=== PATIENT | female | born 1995 | race Caucasian/White ===

== ENCOUNTER 2021-07-06 08:09 | Inpatient (IN) ==
[2021-07-06] MEDS ORDERED: Metoclopramide 10 MG/2 ML VIAL IVP PRN (08:14)
[2021-07-06] MEDS ORDERED: *HR* Nalbuphine 10 MG/ML AMPUL IV PRN (08:14)
[2021-07-06] MEDS ORDERED: Naloxone 0.4 MG/ML INJ IVP PRN (08:14)
[2021-07-06] MEDS ORDERED: Famotidine 20 MG/2 ML VIAL IVP PRN (08:14)
[2021-07-06 09:03] LABS: Basophils % 0.2 %; Eosinophils # 0.1 K/mcL (0.0-0.6); Eosinophils % 0.5 %; Hematocrit 35.3 % (35.3-44.9); Hemoglobin 11.7 g/dL (11.5-15.4); Lymphocytes # 2.5 K/mcL (0.6-4.6); Mean Corpuscular HGB Conc 33.1 g/dL (31.6-35.5); Mean Corpuscular Hemoglobin 27.9 pg (28.0-33.3); Mean Corpuscular Volume 84.2 fL (83.0-100.0); Mean Platelet Volume 10.9 fL (9.4-12.4); Monocytes # 0.7 K/mcL (0.0-1.3); Monocytes % 5.8 %; Neutrophils # 9.1 K/mcL (1.6-8.9); Platelet Count 257 K/mcL (140-400); Red Blood Count 4.19 M/mcL (3.82-4.97); Red Cell Distribution Width 13.2 % (11.5-14.5); Segmented Neutrophils % 72.5 %; White Blood Count 12.6 K/mcL (4.3-11.1)
[2021-07-06 09:35] LABS: Influenza A PCR Negative (Negative); Influenza B PCR Negative (Negative); Resp. Syncytial Virus PCR Negative (Negative)
[2021-07-06 09:40] LABS: SARS-CoV-2 by PCR (In House) Negative (Negative)
[2021-07-06] MEDS ORDERED: Oxytocin 20 units/ LR 1000 mL 20 UNIT/1,000 ML BAG IVC SCH (10:00)
[2021-07-06] MEDS: Ringers Solution, Lactated 1,000 ML IVC SCH ×2 (10:10→16:00)
[2021-07-06] MEDS ORDERED: EPHEDrine 50 MG/ML VIAL IVP PRN (10:14)
[2021-07-06 12:17] LABS: Amphetamine Screen,Urine Negative ng/mL (Cutoff=1000); Barbiturate Screen,Urine Negative ng/mL (Cutoff=200); Benzodiazepines Screen,Urine Negative ng/mL (Cutoff=200); Cannabinoid Screen,Urine Negative ng/mL (Cutoff = 50); Cocaine Screen,Urine Negative ng/mL (Cutoff= 300); Opiate Screen,Urine Negative ng/mL (Cutoff=300); Phencyclidine Screen,Urine Negative ng/mL (Cutoff=25)
[2021-07-06] MEDS ORDERED: *HR* FentaNYL (PF) 100 MCG/2 ML VIAL ONE (15:41)
[2021-07-06] MEDS ORDERED: Ropivacaine/PF 0.2% 20 ML VIAL ONE (15:41)
[2021-07-06] MEDS: Epidural Premix (fent/bupiv) 110 ML EP SCH ×2 (15:57→22:16)
[2021-07-06] MEDS ORDERED: Ondansetron 4 MG/2 ML VIAL ONE (20:52)
[2021-07-06] MEDS ORDERED: Ondansetron 4 MG/2 ML VIAL IVP PRN (20:55)
[2021-07-07] MEDS ORDERED: Ondansetron ODT 4 MG TAB.RAPDIS SL PRN (02:36)
[2021-07-07] MEDS ORDERED: Oxytocin 20 units/ LR 1000 mL 20 UNIT/1,000 ML BAG IVC SCH (02:36)
[2021-07-07] MEDS: Lanolin 7 G OINT...G. TP PRN (03:42)
[2021-07-07] MEDS: Ibuprofen 600 MG TABLET PO SCH ×3 (03:42→17:21)
[2021-07-07] MEDS: Acetaminophen 325 MG TABLET PO SCH ×3 (03:42→17:21)
[2021-07-07 05:25] LABS: Basophils % 0.2 %; Eosinophils % 0.2 %; Hematocrit 30.8 % (35.3-44.9); Hemoglobin 10.3 g/dL (11.5-15.4); Immature Granulocytes % 0.7 % (0-4); Lymphocytes # 2.4 K/mcL (0.6-4.6); Lymphocytes % 12.6 %; Mean Corpuscular HGB Conc 33.4 g/dL (31.6-35.5); Mean Corpuscular Hemoglobin 28.4 pg (28.0-33.3); Mean Corpuscular Volume 84.8 fL (83.0-100.0); Mean Platelet Volume 10.8 fL (9.4-12.4); Monocytes % 5.1 %; Neutrophils # 15.3 K/mcL (1.6-8.9); Platelet Count 229 K/mcL (140-400); Red Blood Count 3.63 M/mcL (3.82-4.97); Red Cell Distribution Width 13.2 % (11.5-14.5); Segmented Neutrophils % 81.2 %; White Blood Count 18.8 K/mcL (4.3-11.1)
[2021-07-07] MEDS ORDERED: Prenatal Vit/FA 1 EACH TABLET PO SCH (09:00)
[2021-07-07] MEDS: Benzocaine/Menthol 56 GM AEROSOL SPRAY TP PRN (10:46)
[2021-07-07] MEDS ORDERED: Measles/Mumps/Rubella Vacc 0.5 ML VIAL SQ ONE (17:21)
[2021-07-07 20:50] VITALS: BP 118/73; PULSE 86; TEMP 98.7; O2SAT 97
[2021-07-08] MEDS: Ibuprofen 600 MG TABLET PO SCH (00:59)
[2021-07-08] MEDS: Acetaminophen 325 MG TABLET PO SCH (00:59)
[2021-07-08] MEDS: Benzocaine/Menthol 56 GM AEROSOL SPRAY TP PRN (01:50)
[2021-07-08] MEDS: Lanolin 7 G OINT...G. TP PRN (01:50)
== END 2021-07-08 01:55 | disposition home or self-care (01) | DRG 560 ==
LOC: 1NENULAB 08:09 → 1NENUOBS 07-07 02:21
PROVIDERS: ADMIT Obstetrics & Gynecology; ATTEND Obstetrics & Gynecology